=== PATIENT | female | born 1980 | race Caucasian/White ===

== ENCOUNTER 2016-11-20 14:22 | Emergency (ER) | payer OTHER ==
[~2016-11-20 14:22] MED LIST: ACID REDUCER75 M1 PO; ALBUTEROL 0.5ML INH; ALBUTEROL17 GM INH; ALLERGY10 M2 PO; AMITRIPTYLINE H50 MG PO; DULERA 100 MCG/13 GM IH; DUONEB 2.5-0.5 M3 ML NEB; LEVAQUIN750 MG PO; MEDROL4 MG/DOSE- PO; PREDNISONE PO; PULMICORT180 MCG/AE INH; SINGULAIR PO
[2016-11-20] MEDS ORDERED: PRILOSEC (14:41)
== END 2016-11-20 15:23 | disposition home or self-care (01) ==
LOC: SED 14:22
DX: J45.901 Unspecified asthma with (acute) exacerbation (principal); Z79.899 Other long term (current) drug therapy
CPT/HCPCS: 94640; 99284